=== PATIENT | female | born 1975 | race African-American/Black ===

== ENCOUNTER 2017-10-17 15:32 | Inpatient (IN) | payer SELFPAY ==
[2017-10-17] MEDS ORDERED: ACETAMINOPHEN 325 MG TABLET PO ONE (15:41)
[2017-10-17] MEDS ORDERED: NORMAL SALINE 1000 ML 1,000 ML IV PRN (16:11)
--- NOTE | 2017-10-17 16:12 | ER Document Report ---
ED Medical Screen (RME) - General Chief Complaint: Fever Stated Complaint: FEVER/HEADACHES Time Seen by Provider: 10/17/17 16:11 Notes: 42 years old female presents today with nearly 2-3 day history of sore throat neck pain general malaise and fever. Denies any headache denies any focal weaknesses. Denies any earache. Denies any chest pain shortness of breath or cough. Denies any nausea vomiting. Denies any dysuria frequency urgency I have greeted and performed a rapid initial assessment of this patient. A comprehensive ED assessment and evaluation of the patient, analysis of test results and completion of the medical decision making process will be conducted by additional ED providers. PHYSICAL EXAMINATION: GENERAL: Well-appearing, well-nourished and in no acute distress. HEAD: Atraumatic, normocephalic. EYES: Pupils equal round extraocular movements intact, conjunctiva are normal. ENT: Nares patent NECK: Normal range of motion LUNGS: No respiratory distress Musculoskeletal: Normal range of motion NEUROLOGICAL: Normal speech, normal gait. PSYCH: Normal mood, normal affect. SKIN: Warm, Dry, normal turgor, no rashes or lesions noted. TRAVEL OUTSIDE OF THE [place] IN LAST 30 DAYS: No - Related Data Allergies/Adverse Reactions: No Known Allergies Allergy (Unverified 10/17/17 15:34)
[2017-10-17] MEDS ORDERED: KETOROLAC TROMETHAMINE INJ/PF 30 MG/1 ML SDV IV ONE (16:59)
--- NOTE | 2017-10-17 17:04 | ER Document Report ---
ED General <SHABANA OROURKE - Last Filed: 10/17/17 18:45> - General Mode of Arrival: Ambulatory Information source: Patient TRAVEL OUTSIDE OF THE [place] IN LAST 30 DAYS: No <DAHLIA SHELTON - Last Filed: 10/17/17 22:26> - General Chief Complaint: Fever Stated Complaint: FEVER/HEADACHES Time Seen by Provider: 10/17/17 16:11 Notes: Patient is a 42 year old female with anemia presents to the emergency department complaining of multiple symptoms including sore throat, headaches, fevers and chills onset 3 days ago. Patient states she woke up 3 days ago and had chills. She states she took her temperature and found it to be 101.9. Patient states her symptoms progressively worsened over the last 3 days and found her temperature to be 103.9. Patient states she has been around sick contacts. Patient denies any cough or earaches. (DAHLIA SHELTON) - Related Data Allergies/Adverse Reactions: No Known Allergies Allergy (Unverified 10/17/17 15:34) Past Medical History - General Information source: Patient - Social History Smoking Status: Current Every Day Smoker Cigarette use (# per day): Yes - 1/2 a pack a day Chew tobacco use (# tins/day): No Smoking Education Provided: No Frequency of alcohol use: Occasional Drug Abuse: None Occupation: [employer] Family History: Reviewed & Not Pertinent Patient has suicidal ideation: No Patient has homicidal ideation: No Past Surgical History: Reports: Hx Section - x3 <DAHLIA SHELTON - Last Filed: 10/17/17 22:26> Review of Systems - Review of Systems Constitutional: See HPI, Chills, Fever EENT: See HPI Cardiovascular: No symptoms reported Respiratory: No symptoms reported Gastrointestinal: No symptoms reported Genitourinary: No symptoms reported Female Genitourinary: See HPI, Heavy/abnormal periods - reported after inital check Musculoskeletal: No symptoms reported Skin: No symptoms reported Hematologic/Lymphatic: No symptoms reported Neurological/Psychological: No symptoms reported -: Yes All other systems reviewed and negative <DAHLIA SHELTON - Last Filed: 10/17/17 22:26> Physical Exam <SHABANA OROURKE - Last Filed: 10/17/17 18:45> <DAHLIA SHELTON - Last Filed: 10/17/17 22:26> - Vital signs Vitals: Resp Pulse Ox 16 100 10/17/17 17:21 10/17/17 17:21 - Notes Notes: GENERAL: Alert, interacts well. No acute distress. HEAD: Normocephalic, atraumatic. EYES: Pupils equal, round, and reactive to light. Extraocular movements intact. Pale conjunctiva. ENT: Oral mucosa moist, tongue midline. Posterior orophraynx is erythematous with a minimal amount of swelling. NECK: Full range of motion. Supple. Trachea midline. Anterior cervical glands tender to palpation. LUNGS: Clear to auscultation bilaterally, no wheezes, rales, or rhonchi. No respiratory distress. HEART: Regular rate and rhythm. No murmurs, gallops, or rubs. ABDOMEN: Soft, non-tender. Non-distended. Bowel sounds present in all 4 quadrants. EXTREMITIES: Moves all 4 extremities spontaneously. NEUROLOGICAL: Alert and oriented x3. Normal speech. PSYCH: Normal affect, normal mood. SKIN: Warm, dry, normal turgor. No rashes or lesions noted. (DAHLIA SHELTON) Course - Laboratory Result Diagrams: 10/17/17 16:48 10/17/17 16:48 - Consults Dr. Velasquez Time consulted: 17:30 Consulted provider: will come to ER <SHABANA OROURKE - Last Filed: 10/17/17 18:45> - Laboratory Result Diagrams: 10/17/17 16:48 10/17/17 16:48 <DAHLIA SHELTON - Last Filed: 10/17/17 22:26> - Vital Signs Vital signs: Temp Pulse Resp BP Pulse Ox 98.8 F 94 15 112/57 L 100 10/17/17 21:06 10/17/17 21:06 10/17/17 21:08 10/17/17 21:08 10/17/17 21:08 - Laboratory Laboratory results interpreted by me: 10/17/17 10/17/17 10/17/17 16:48 16:48 16:48 WBC 10.6 H RBC 2.08 L Hgb 4.2 L* Hct 14.0 L* MCV 67 L MCH 20.2 L MCHC 30.1 L RDW 34.3 H Lymphocytes % 12.6 L Sodium 135.2 L Iron < 10.1 L TIBC 470 H Crossmatch 10/17/17 17:40 WBC RBC Hgb Hct MCV MCH MCHC RDW Lymphocytes % Sodium Iron TIBC Crossmatch See Detail Critical Care Note - Critical Care Note Total time excluding time spent on procedures (mins): 30 <SHABANA OROURKE - Last Filed: 10/17/17 18:45> Discharge - Discharge Admitting Provider: Hospitalist Unit Admitted: Telemetry <SHABANA OROURKE - Last Filed: 10/17/17 18:45> <DAHLIA SHELTON - Last Filed: 10/17/17 22:26> - Discharge Clinical Impression: Pharyngitis Qualifiers: Pharyngitis/tonsillitis etiology: unspecified etiology Qualified Code(s): J02.9 - Acute pharyngitis, unspecified Fever Qualifiers: Fever type: unspecified Qualified Code(s): R50.9 - Fever, unspecified Anemia Qualifiers: Anemia type: iron deficiency Iron deficiency anemia type: chronic blood loss Qualified Code(s): D50.0 - Iron deficiency anemia secondary to blood loss ( chronic) Menorrhagia Qualifiers: Menorrahagia type: with regular cycle Qualified Code(s): N92.0 - Excessive and frequent menstruation with regular cycle Condition: Stable Disposition: ADMITTED INPATIENT Scribe Attestation: 10/17/17 17:21 I personally performed the services described in the documentation, reviewed and edited the documentation which was dictated to the scribe in my presence, and it accurately records my words and actions. (SHABANA OROURKE) Scribe Documentation - Scribe Written by [email or web address]:: Fernando Lopes, 10/17/2017 17:09 acting as scribe for :: Kristopher <DAHLIA SHELTON - Last Filed: 10/17/17 22:26>
[2017-10-17 17:14] LABS: ABSOLUTE LYMPHOCYTES (AUTO) 1.3 10^3/uL (0.5-4.7); ABSOLUTE MONOCYTES (AUTO) 1.2 10^3/uL (0.1-1.4); ABSOLUTE NEUT (AUTO) 8.1 10^3/uL (1.7-8.2); BASOPHILS % (AUTO) 0.3 % (0-2); LYMPHOCYTES % (AUTO) 12.6 % (13-45); MEAN CORPUSCULAR HEMOGLOBIN 20.2 pg (27.0-33.4); MEAN CORPUSCULAR HGB CONC 30.1 g/dL (32.0-36.0); MEAN CORPUSCULAR VOLUME 67 fl (80-97); MONOCYTES % (AUTO) 10.9 % (3-13); PLATELET COUNT 314 10^3/uL (150-450); RED BLOOD COUNT 2.08 10^6/uL (3.72-5.28); RED CELL DISTRIBUTION WIDTH 34.3 % (11.5-14.0); SEGMENTED NEUTROPHILS % (AUTO) 76.2 % (42-78); TOTAL CELLS COUNTED % (AUTO) 100 %; WHITE BLOOD COUNT 10.6 10^3/uL (4.0-10.5)
[2017-10-17 17:21] LABS: HEMOGLOBIN 4.2 g/dL (12.0-15.5)
[2017-10-17 17:29] LABS: ALANINE AMINOTRANSFERASE 28 U/L (9-52); ALBUMIN 3.7 g/dL (3.5-5.0); ALKALINE PHOSPHATASE 44 U/L (38-126); ANION GAP 10 (5-19); ASPARTATE AMINO TRANSFERASE 23 U/L (14-36); BILIRUBIN,DIRECT 0.2 mg/dL (0.0-0.4); BILIRUBIN,TOTAL 0.2 mg/dL (0.2-1.3); BLOOD UREA NITROGEN 9 mg/dL (7-20); CALCIUM 8.4 mg/dL (8.4-10.2); CARBON DIOXIDE 23 mmol/L (22-30); CHLORIDE 102 mmol/L (98-107); GLUCOSE 84 mg/dL (75-110); POTASSIUM 4.1 mmol/L (3.6-5.0); SODIUM 135.2 mmol/L (137-145); TOTAL PROTEIN 6.4 g/dL (6.3-8.2)
[2017-10-17] MEDS ORDERED: NORMAL SALINE 250 ML IV PRN (17:33)
[2017-10-17 17:39] LABS: ANISOCYTOSIS 3+; HYPOCHROMASIA 3+; OVALOCYTES SLIGHT; PLATELET COMMENT ADEQUATE; POIKILOCYTOSIS 1+; POLYCHROMASIA SLIGHT; SCHISTOCYTES SLIGHT; STOMATOCYTES SLIGHT
[2017-10-17 18:15] LABS: ABSOLUTE RETICS # 0.045 10^6/uL (0.028-0.122); RETICULOCYTE COUNT (AUTO) 2.15 % (0.66-2.85)
--- NOTE | 2017-10-17 18:26 | PDOC H&P ---
History of Present Illness Admission Date/PCP: 10/17/2017 Patient complains of: sore throat , fatigue and craving for ice History of Present Illness: MIRELA FABIAN is a 42 year old female with no significant past medical history Who presented to the ED complaining of a mild sore throat and fatigue Patient stated that she had lost 20 pounds in the past month following a "vinegar diet " She has been describing very prolonged menses 5-7 days Patient denied abdominal pain or tarry stools. Routine blood testing done in the ED showed severe anemia with a hemoglobin of 4 and a hematocrit of 16 Patient was subsequently admitted under hospitalist service for further evaluation and care Past Medical History Past Medical History: Patient at this unknown medical history She does not have a primary care physician Hematology: Reports: Anemia - Patient was donating plasma in 2013 and was told she was anemic Past Surgical History Past Surgical History: 3 C-sections Past Surgical History: Reports: Section - x3 Social History Information Source: Patient Smoking Status: Current Every Day Smoker Frequency of Alcohol Use: None Hx Recreational Drug Use: No Hx Prescription Drug Abuse: No - Advance Directive Resuscitation Status: Full Code Surrogate healthcare decision maker:: Her son Wesley Prakash Family History Family History: DM, Hypertension Parental Family History Reviewed: Yes Children Family History Reviewed: Yes Sibling(s) Family History Reviewed.: Yes Medication/Allergy Allergies/Adverse Reactions: No Known Allergies Allergy (Unverified 10/17/17 15:34) Review of Systems Constitutional: PRESENT: as per HPI, fatigue, weight loss Cardiovascular: PRESENT: dyspnea on exertion. ABSENT: chest pain, edema, palpitations Respiratory: PRESENT: dyspnea Gastrointestinal: ABSENT: abdominal pain, coffee ground emesis, dysphagia, heartburn, hematemesis, hematochezia, vomiting Genitourinary: ABSENT: dysuria, hematuria Musculoskeletal: ABSENT: joint swelling Neurological: ABSENT: abnormal gait, abnormal speech, confusion, dizziness, focal weakness, syncope Endocrine: ABSENT: cold intolerance, heat intolerance, polydipsia, polyuria Hematologic/Lymphatic: ABSENT: easy bleeding, easy bruising Physical Exam Vital Signs: Intake & Output 10/16/17 10/17/17 10/18/17 00:59 00:59 00:59 Weight 68 kg General appearance: PRESENT: no acute distress, well-developed, well-nourished Head exam: PRESENT: atraumatic, normocephalic Eye exam: PRESENT: conjunctiva pale, EOMI, PERRLA Neck exam: ABSENT: carotid bruit, JVD, lymphadenopathy, thyromegaly Respiratory exam: PRESENT: clear to auscultation hannah. ABSENT: rales, rhonchi, wheezes Cardiovascular exam: PRESENT: RRR. ABSENT: diastolic murmur, rubs, systolic murmur Vascular exam: PRESENT: normal capillary refill Extremities exam: PRESENT: full ROM. ABSENT: calf tenderness, clubbing, pedal edema Neurological exam: PRESENT: alert, awake, oriented to person, oriented to place , oriented to time, oriented to situation, CN II-XII grossly intact. ABSENT: motor sensory deficit Skin exam: PRESENT: dry, intact, warm. ABSENT: cyanosis, rash Results Laboratory Results: 10/17/17 16:48 10/17/17 16:48 10/17/17 10/17/17 10/17/17 16:00 16:00 16:48 WBC Cancelled 10.6 H RBC Cancelled 2.08 L Hgb Cancelled 4.2 L* Hct Cancelled 14.0 L* MCV Cancelled 67 L MCH Cancelled 20.2 L MCHC Cancelled 30.1 L RDW Cancelled 34.3 H Plt Count Cancelled 314 Seg Neutrophils % Cancelled 76.2 Lymphocytes % Cancelled 12.6 L Monocytes % Cancelled 10.9 Eosinophils % Cancelled 0.0 Basophils % Cancelled 0.3 Absolute Neutrophils Cancelled 8.1 Absolute Lymphocytes Cancelled 1.3 Absolute Monocytes Cancelled 1.2 Absolute Eosinophils Cancelled 0.0 Absolute Basophils Cancelled 0.0 Sodium Cancelled Potassium Cancelled Chloride Cancelled Carbon Dioxide Cancelled Anion Gap Cancelled BUN Cancelled Creatinine Cancelled Est GFR ( Amer) Cancelled Est GFR (Non-Af Amer) Cancelled Glucose Cancelled Calcium Cancelled Total Bilirubin Cancelled AST Cancelled ALT Cancelled Alkaline Phosphatase Cancelled Total Protein Cancelled Albumin Cancelled Serum HCG, Qual 10/17/17 10/17/17 16:48 16:48 WBC RBC Hgb Hct MCV MCH MCHC RDW Plt Count Seg Neutrophils % Lymphocytes % Monocytes % Eosinophils % Basophils % Absolute Neutrophils Absolute Lymphocytes Absolute Monocytes Absolute Eosinophils Absolute Basophils Sodium 135.2 L Potassium 4.1 Chloride 102 Carbon Dioxide 23 Anion Gap 10 BUN 9 Creatinine 0.61 Est GFR ( Amer) > 60 Est GFR (Non-Af Amer) > 60 Glucose 84 Calcium 8.4 Total Bilirubin 0.2 AST 23 ALT 28 Alkaline Phosphatase 44 Total Protein 6.4 Albumin 3.7 Serum HCG, Qual NEGATIVE Assessment & Plan - Diagnosis (1) Anemia Is this a current diagnosis for this admission?: Yes Plan: Acute on chronic likely iron deficiency anemia Patient gives a history of very prolonged menses Iron vitamin B12 folate are pending Patient will be transfused 2 units of packed red cells Repeat CBC in a.m. Remain transfuse further tomorrow to achieve a hematocrit of 26 (2) Menorrhagia Qualifiers: Menorrahagia type: with regular cycle Qualified Code(s): N92.0 - Excessive and frequent menstruation with regular cycle Is this a current diagnosis for this admission?: Yes Plan: We will schedule the patient tomorrow morning for pelvic ultrasound to exclude a fibroid uterus - Time Time Spent with patient: Patient will be admitted to medicine was telemetry as an inpatient Time Spent: 50 to 70 Minutes - Inpatient Certification Based on my medical assessment, after consideration of the patient's comorbidities, presenting symptoms, or acuity I expect that the services needed warrant INPATIENT care.: Yes I certify that my determination is in accordance with my understanding of Medicare's requirements for reasonable and necessary INPATIENT services [42 CFR 412.3e].: Yes Medical Necessity: Need Close Monitoring Due to Risk of Patient Decompensation, Need For Continuous Telemetry Monitoring
[2017-10-17 19:22] LABS: IRON(TIBC) < 10.1 ug/dL (37-170)
[2017-10-18] MEDS: ACETAMINOPHEN 325 MG TABLET PO PRN ×4 (02:43→23:43)
[2017-10-18] MEDS: KETOROLAC TROMETHAMINE INJ/PF 30 MG/1 ML SDV IV PRN ×3 (04:40→22:54)
[2017-10-18] MEDS ORDERED: LEVOFLOXACIN 750 MG/D5W RTU 750 MG/150 ML RTUPB IV ONE (05:00)
[2017-10-18 07:21] LABS: ABSOLUTE BASOPHILS # (AUTO) 0.1 10^3/uL (0.0-0.2); ABSOLUTE LYMPHOCYTES (AUTO) 1.6 10^3/uL (0.5-4.7); ABSOLUTE MONOCYTES (AUTO) 1.1 10^3/uL (0.1-1.4); ABSOLUTE NEUT (AUTO) 7.5 10^3/uL (1.7-8.2); BASOPHILS % (AUTO) 0.6 % (0-2); HEMATOCRIT 18.9 % (36.0-47.0); LYMPHOCYTES % (AUTO) 15.8 % (13-45); MEAN CORPUSCULAR HEMOGLOBIN 22.3 pg (27.0-33.4); MEAN CORPUSCULAR HGB CONC 31.4 g/dL (32.0-36.0); MONOCYTES % (AUTO) 10.3 % (3-13); PLATELET COUNT 240 10^3/uL (150-450); RED BLOOD COUNT 2.67 10^6/uL (3.72-5.28); RED CELL DISTRIBUTION WIDTH 29.5 % (11.5-14.0); SEGMENTED NEUTROPHILS % (AUTO) 73.3 % (42-78); TOTAL CELLS COUNTED % (AUTO) 100 %; WHITE BLOOD COUNT 10.2 10^3/uL (4.0-10.5)
[2017-10-18 07:23] LABS: CHOLESTEROL 117.15 mg/dL (0-200); TRIGLYCERIDES 62 mg/dL (<150)
[2017-10-18 07:35] LABS: DIRECT LDL 35 mg/dL (<100)
[2017-10-18 07:52] LABS: MEAN CORPUSCULAR VOLUME 71 fl (80-97)
[2017-10-18 08:00] LABS: ANISOCYTOSIS 3+; HYPOCHROMASIA 2+; OVALOCYTES 2+; PLATELET COMMENT ADEQUATE; POIKILOCYTOSIS 2+
[2017-10-18 08:06] LABS: FREE T4 (FREE THYROXINE) 0.74 ng/dL (0.78-2.19)
[2017-10-18 08:20] LABS: THYROID STIMULATING HORMONE 3.53 uIU/mL (0.47-4.68)
[2017-10-18 08:39] LABS: HEMOGLOBIN 5.9 g/dL (12.0-15.5)
[2017-10-18] MEDS ORDERED: NORMAL SALINE 250 ML IV PRN ×2 (08:50)
--- NOTE | 2017-10-18 09:14 | PDOC PROGRESS REPORT ---
Subjective Progress Note for:: 10/18/17 Subjective:: Patient had a fever 102 yesterday Levaquin IV was initiated She still complaining of sore throat No cough no dysuria Hemoglobin is 5.9 this morning Reason For Visit: ACUTE/CHRONIC ANEMIA Physical Exam Vital Signs: Temp Pulse Resp BP Pulse Ox 99.8 F 92 18 103/53 L 98 10/18/17 06:35 10/18/17 07:00 10/18/17 06:35 10/18/17 06:35 10/18/17 06:35 Intake & Output 10/17/17 10/18/17 10/19/17 00:59 00:59 00:59 Intake Total 300 672 Balance 300 672 Weight 68 kg General appearance: PRESENT: no acute distress, cooperative Head exam: PRESENT: atraumatic, normocephalic Eye exam: PRESENT: conjunctiva pale Neck exam: ABSENT: carotid bruit, JVD, lymphadenopathy, thyromegaly Respiratory exam: PRESENT: clear to auscultation hannah. ABSENT: rales, rhonchi, wheezes Cardiovascular exam: PRESENT: RRR. ABSENT: diastolic murmur, rubs, systolic murmur Pulses: PRESENT: normal dorsalis pedis pul GI/Abdominal exam: PRESENT: normal bowel sounds, soft. ABSENT: distended, guarding, mass, organolmegaly, rebound, tenderness Neurological exam: PRESENT: alert, awake, oriented to person, oriented to place , oriented to time, oriented to situation, CN II-XII grossly intact. ABSENT: motor sensory deficit Results Laboratory Results: 10/18/17 07:00 10/18/17 10/18/17 10/18/17 07:00 07:00 07:00 WBC 10.2 RBC 2.67 L Hgb 5.9 L Hct 18.9 L MCV 71 L D MCH 22.3 L MCHC 31.4 L RDW 29.5 H Plt Count 240 Seg Neutrophils % 73.3 Lymphocytes % 15.8 Monocytes % 10.3 Eosinophils % 0.0 Basophils % 0.6 Absolute Neutrophils 7.5 Absolute Lymphocytes 1.6 Absolute Monocytes 1.1 Absolute Eosinophils 0.0 Absolute Basophils 0.1 Triglycerides 62 Cholesterol 117.15 LDL Cholesterol Direct 35 VLDL Cholesterol 12.0 HDL Cholesterol 58 TSH 3.53 Free T4 0.74 L Assessment & Plan - Diagnosis (1) Anemia Qualifiers: Anemia type: iron deficiency Iron deficiency anemia type: chronic blood loss Qualified Code(s): D50.0 - Iron deficiency anemia secondary to blood loss (chronic) Is this a current diagnosis for this admission?: Yes Plan: Transfuse 2 units of packed red cells Hematology consult Patient may need intravenous iron as an outpatient (2) Menorrhagia Qualifiers: Menorrahagia type: with regular cycle Qualified Code(s): N92.0 - Excessive and frequent menstruation with regular cycle Is this a current diagnosis for this admission?: Yes Plan: Pelvic ultrasound is pending (3) Pharyngitis Qualifiers: Pharyngitis/tonsillitis etiology: unspecified etiology Qualified Code(s): J02.9 - Acute pharyngitis, unspecified Is this a current diagnosis for this admission?: Yes Plan: Switch antibiotic coverage to clinda po Strep was negative - Time Time Spent with patient: 25-34 minutes
--- NOTE | 2017-10-18 10:24 | RADIOLOGY REPORT (SQ) ---
EXAM DESCRIPTION: CHEST SINGLE VIEW COMPLETED DATE/TIME: 10/18/2017 9:58 am REASON FOR STUDY: fever COMPARISON: 10/21/2008 EXAM PARAMETERS: NUMBER OF VIEWS: One view. TECHNIQUE: Single frontal radiographic view of the chest acquired. RADIATION DOSE: NA LIMITATIONS: None. FINDINGS: LUNGS AND PLEURA: No opacities, masses or pneumothorax. No pleural effusion. MEDIASTINUM AND HILAR STRUCTURES: No masses. Contour normal. HEART AND VASCULAR STRUCTURES: Heart normal in size. Normal vasculature. BONES: No acute findings. HARDWARE: None in the chest. OTHER: No other significant finding. IMPRESSION: NO ACUTE RADIOGRAPHIC FINDING IN THE CHEST. TECHNICAL DOCUMENTATION: JOB ID: [id number] [employer]- All Rights Reserved Reading location - IP/workstation name: [email or web address]
--- NOTE | 2017-10-18 12:29 | PDOC CONSULTATION ---
Consultation Consult Date: 10/18/17 Consult reason:: Hematology/Oncology Consult was requested for patient with anemia. History of Present Illness Admission Date/PCP: 10/17/17 18:45 History of Present Illness: MIRELA FABIAN is a 42 year old female who states that she has had anemia for many years. She often craves ice but has not needed to see a physician for the past 5 years, as she has been healthy. She has been on a "vinegar diet" taking about 1/4 cup vinegar 3 times a day and has lost about 20 lbs in the last 2 months. She has been very pleased with this. She eats mainly vegetables with little meat. Early Thurs. morning, she developed sudden shaking chills and felt "feverish." She took her temp and it was elevated. However, she took Tylenol and went on to work. She then develoed headache, pain in her throat and fever returns up to 103. She presented to the ED and was found to have HGB of 4.2. She is in the process of receiving blood transfusions and is being evaluated for possible strep throat. Past Medical History Hematology: Reports: Anemia - Patient was donating plasma in 2013 and was told she was anemic Past Surgical History Past Surgical History: Reports: Section - x3 Social History Information Source: Patient Occupation: [employer] Lives with: Family Smoking Status: Current Some Day Smoker Number of Years Smokin Frequency of Alcohol Use: Occasional Hx Recreational Drug Use: No Drugs: None Hx Prescription Drug Abuse: No - Advance Directive Resuscitation Status: Full Code Family History Parental Family History Reviewed: Yes - MGM with Colon cancer Also with DM, HTN in parents Children Family History Reviewed: Yes Sibling(s) Family History Reviewed.: No Medication/Allergy Home Medications: No Home Medications 10/17/17 Allergies/Adverse Reactions: No Known Allergies Allergy (Unverified 10/17/17 15:34) Review of Systems Constitutional: PRESENT: fever(s), headache(s), night sweats Eyes: ABSENT: visual disturbances Ears: ABSENT: hearing changes Nose, Mouth, and Throat: PRESENT: sore throat Cardiovascular: ABSENT: chest pain Respiratory: ABSENT: cough Gastrointestinal: ABSENT: heartburn Genitourinary: ABSENT: dysuria, hematuria Musculoskeletal: ABSENT: joint swelling Integumentary: ABSENT: rash Neurological: ABSENT: numbness, weakness Endocrine: PRESENT: menstrual abnormalities - Heavy periods. Hematologic/Lymphatic: ABSENT: lymphadenopathy Physical Exam Vital Signs: Temp Pulse Resp BP Pulse Ox 99.6 F 92 18 103/53 L 98 10/18/17 09:21 10/18/17 07:00 10/18/17 06:35 10/18/17 06:35 10/18/17 06:35 Intake & Output 10/17/17 10/18/17 10/19/17 06:59 06:59 06:59 Intake Total 972 0 Balance 972 0 Weight 68 kg General appearance: PRESENT: no acute distress Exam: Overweight, 42 year old female. Head exam: PRESENT: normocephalic Eye exam: PRESENT: EOMI, PERRLA Mouth exam: PRESENT: moist, tongue midline Neck exam: ABSENT: lymphadenopathy, tenderness Respiratory exam: PRESENT: clear to auscultation hannah, unlabored Cardiovascular exam: PRESENT: RRR GI/Abdominal exam: PRESENT: soft. ABSENT: tenderness Extremities exam: ABSENT: pedal edema Musculoskeletal exam: PRESENT: normal inspection Neurological exam: PRESENT: alert, awake, oriented to person, oriented to place , oriented to time, oriented to situation. ABSENT: motor sensory deficit Psychiatric exam: PRESENT: appropriate affect Skin exam: PRESENT: normal color Results Laboratory Results: 10/18/17 07:00 10/18/17 10/18/17 10/18/17 07:00 07:00 07:00 WBC 10.2 RBC 2.67 L Hgb 5.9 L Hct 18.9 L MCV 71 L D MCH 22.3 L MCHC 31.4 L RDW 29.5 H Plt Count 240 Seg Neutrophils % 73.3 Lymphocytes % 15.8 Monocytes % 10.3 Eosinophils % 0.0 Basophils % 0.6 Absolute Neutrophils 7.5 Absolute Lymphocytes 1.6 Absolute Monocytes 1.1 Absolute Eosinophils 0.0 Absolute Basophils 0.1 Triglycerides 62 Cholesterol 117.15 LDL Cholesterol Direct 35 VLDL Cholesterol 12.0 HDL Cholesterol 58 TSH 3.53 Free T4 0.74 L Impressions: Chest X-Ray 10/18/17 08:53 IMPRESSION: NO ACUTE RADIOGRAPHIC FINDING IN THE CHEST. Assessment & Plan - Diagnosis (1) Anemia Qualifiers: Anemia type: iron deficiency Iron deficiency anemia type: chronic blood loss Qualified Code(s): D50.0 - Iron deficiency anemia secondary to blood loss (chronic) Is this a current diagnosis for this admission?: Yes Plan: We discussed the fact that she is not getting enough iron in her diet. I believe that she may do well with oral supplements in the future. I will start these now. I agree with blood transfusion. If she does not respond to the oral iron, then I will arrange further testing and treatment. (2) Fever Qualifiers: Fever type: unspecified Qualified Code(s): R50.9 - Fever, unspecified Is this a current diagnosis for this admission?: Yes Plan: I agree with work-up for throat. I will defer to primary team. - Plan Summary Plan Summary: We discussed the fact that the vinegar diet may not be the healthiest approach. I would like to see her start MVI in addition to the iron supplements. If her stomach does not tolerate, then consider another form. I will be happy to continue to follow her as outpatient and will follow her levels at least over the next year.
[2017-10-18 13:28] LABS: PATH REVIEW PATHOLOGIST REVIEWED
[2017-10-18 15:51] LABS: APPEARANCE,URINE SLIGHTLY-CLOUDY; BILIRUBIN,URINE NEGATIVE (NEGATIVE); COLOR,URINE YELLOW; GLUCOSE, URINE NEGATIVE (NEGATIVE); KETONES,URINE NEGATIVE (NEGATIVE); LEUKOCYTE ESTERASE,URINE SMALL (NEGATIVE); NITRITE,URINE NEGATIVE (NEGATIVE); PROTEIN,URINE 30 mg/dL (NEGATIVE); URINE SPECIFIC GRAVITY 1.023
[2017-10-18] MEDS ORDERED: CEFTRIAXONE 1 GM/D5W RTU 1 GM/50 ML RTUPB IV SCH (16:00)
[2017-10-18] MEDS ORDERED: IBUPROFEN 600 MG TABLET PO ONE (16:45)
[2017-10-18] MEDS: FERROUS SULFATE 325 MG TABLET PO SCH (17:42)
[2017-10-18] MEDS: CEFTRIAXONE SODIUM 1,000 MG in DEXTROSE 5%-WATER 50 ML IV SCH (17:42)
[2017-10-19] MEDS: ACETAMINOPHEN 325 MG TABLET PO PRN ×2 (05:50→15:48)
[2017-10-19 07:06] LABS: ABSOLUTE BASOPHILS # (AUTO) 0.1 10^3/uL (0.0-0.2); TOTAL CELLS COUNTED % (AUTO) 100 %
[2017-10-19 07:12] LABS: ABSOLUTE LYMPHOCYTES (AUTO) 1.3 10^3/uL (0.5-4.7); ABSOLUTE MONOCYTES (AUTO) 1.5 10^3/uL (0.1-1.4); ABSOLUTE NEUT (AUTO) 8.7 10^3/uL (1.7-8.2); BASOPHILS % (AUTO) 0.5 % (0-2); EOSINOPHILS % (AUTO) 0.2 % (0-6); LYMPHOCYTES % (AUTO) 11.1 % (13-45); MEAN CORPUSCULAR HEMOGLOBIN 23.7 pg (27.0-33.4); MEAN CORPUSCULAR VOLUME 74 fl (80-97); MONOCYTES % (AUTO) 12.8 % (3-13); PLATELET COUNT 188 10^3/uL (150-450); RED BLOOD COUNT 2.98 10^6/uL (3.72-5.28); SEGMENTED NEUTROPHILS % (AUTO) 75.4 % (42-78); WHITE BLOOD COUNT 11.5 10^3/uL (4.0-10.5)
[2017-10-19 07:40] LABS: ANISOCYTOSIS 4+; HYPOCHROMASIA 2+; OVALOCYTES 1+; POIKILOCYTOSIS 1+; TEAR DROP CELLS SLIGHT
[2017-10-19 07:42] LABS: PLATELET COMMENT ADEQUATE
[2017-10-19 07:43] LABS: HEMOGLOBIN 7.1 g/dL (12.0-15.5)
[2017-10-19] MEDS: FERROUS SULFATE 325 MG TABLET PO SCH ×2 (08:19→17:51)
[2017-10-19] MEDS: KETOROLAC TROMETHAMINE INJ/PF 30 MG/1 ML SDV IV PRN ×2 (08:20→15:48)
[2017-10-19] MEDS ORDERED: LEVOFLOXACIN 750 MG/D5W RTU 750 MG/150 ML RTUPB IV SCH (10:00)
[2017-10-19] MEDS: MULTIVITAMIN TABLET PO SCH (10:55)
--- NOTE | 2017-10-19 11:04 | PDOC PROGRESS REPORT ---
Subjective Progress Note for:: 10/19/17 Subjective:: Patient states that she is feeling much better. Still with some hot flashes. Throat is improved. Reason For Visit: ACUTE/CHRONIC ANEMIA Physical Exam Vital Signs: Temp Pulse Resp BP Pulse Ox 99.5 F 56 L 14 97/50 L 98 10/19/17 08:30 10/19/17 08:30 10/19/17 08:30 10/19/17 08:30 10/19/17 08:30 Intake & Output 10/18/17 10/19/17 10/20/17 06:59 06:59 06:59 Intake Total 972 1805.25 Output Total 500 Balance 972 1305.25 Weight 68 kg 68.2 kg Results Laboratory Results: 10/19/17 05:44 10/18/17 10/19/17 14:47 05:44 WBC 11.5 H RBC 2.98 L Hgb 7.1 L Hct 22.0 L MCV 74 L MCH 23.7 L MCHC 32.0 RDW 29.0 H Plt Count 188 Seg Neutrophils % 75.4 Lymphocytes % 11.1 L Monocytes % 12.8 Eosinophils % 0.2 Basophils % 0.5 Absolute Neutrophils 8.7 H Absolute Lymphocytes 1.3 Absolute Monocytes 1.5 H Absolute Eosinophils 0.0 Absolute Basophils 0.1 Urine Color YELLOW Urine Appearance SLIGHTLY-CLOUDY Urine pH 6.0 Ur Specific Nettie 1.023 Urine Protein 30 H Urine Glucose (UA) NEGATIVE Urine Ketones NEGATIVE Urine Blood NEGATIVE Urine Nitrite NEGATIVE Ur Leukocyte Esterase SMALL H Urine WBC (Auto) 29 Urine RBC (Auto) 3 Impressions: Chest X-Ray 10/18/17 08:53 IMPRESSION: NO ACUTE RADIOGRAPHIC FINDING IN THE CHEST. Assessment & Plan - Diagnosis (1) Anemia Qualifiers: Anemia type: iron deficiency Iron deficiency anemia type: chronic blood loss Qualified Code(s): D50.0 - Iron deficiency anemia secondary to blood loss (chronic) Is this a current diagnosis for this admission?: Yes Plan: Improved after transfusion. She is tolerating PO iron without difficulty. LDH was not elevated. (2) Fever Qualifiers: Fever type: unspecified Qualified Code(s): R50.9 - Fever, unspecified Is this a current diagnosis for this admission?: Yes - Plan Summary Plan Summary: OK to discharge from anemia standpoint. She should continue oral iron supplements at least twice a day. I will see her in the office in a few weeks to repeat CBC and ferritin. Please call with any other concerns.
--- NOTE | 2017-10-19 16:08 | PDOC PROGRESS REPORT ---
Subjective Progress Note for:: 10/19/17 Subjective:: Patient is doing well but she is still febrile Temp is intermittently 101 102 through the day sorethroat is persistent but mild Patient is also complaining of low back pain Reason For Visit: ACUTE/CHRONIC ANEMIA Physical Exam Vital Signs: Temp Pulse Resp BP Pulse Ox 98.9 F 76 16 94/55 L 97 10/19/17 12:59 10/19/17 14:00 10/19/17 12:59 10/19/17 12:59 10/19/17 12:59 Intake & Output 10/18/17 10/19/17 10/20/17 00:59 00:59 00:59 Intake Total 300 2359.25 118 Output Total 500 Balance 300 1859.25 118 Weight 68 kg 68.2 kg General appearance: PRESENT: no acute distress, disheveled, well-developed, well -nourished Head exam: PRESENT: atraumatic, normocephalic Eye exam: PRESENT: conjunctiva pink, EOMI, PERRLA. ABSENT: scleral icterus Throat exam: ABSENT: post pharyngeal erythema, tonsillar exudate Neck exam: ABSENT: carotid bruit, JVD, lymphadenopathy, thyromegaly Respiratory exam: PRESENT: clear to auscultation hannah. ABSENT: rales, rhonchi, wheezes Cardiovascular exam: PRESENT: RRR. ABSENT: diastolic murmur, rubs, systolic murmur GI/Abdominal exam: PRESENT: normal bowel sounds, soft. ABSENT: distended, guarding, mass, organolmegaly, rebound, tenderness Neurological exam: PRESENT: alert, awake, oriented to person, oriented to place , oriented to time, oriented to situation, CN II-XII grossly intact. ABSENT: motor sensory deficit Psychiatric exam: PRESENT: appropriate affect, normal mood Results Laboratory Results: 10/19/17 05:44 10/19/17 05:44 WBC 11.5 H RBC 2.98 L Hgb 7.1 L Hct 22.0 L MCV 74 L MCH 23.7 L MCHC 32.0 RDW 29.0 H Plt Count 188 Seg Neutrophils % 75.4 Lymphocytes % 11.1 L Monocytes % 12.8 Eosinophils % 0.2 Basophils % 0.5 Absolute Neutrophils 8.7 H Absolute Lymphocytes 1.3 Absolute Monocytes 1.5 H Absolute Eosinophils 0.0 Absolute Basophils 0.1 Impressions: Chest X-Ray 10/18/17 08:53 IMPRESSION: NO ACUTE RADIOGRAPHIC FINDING IN THE CHEST. Assessment & Plan - Diagnosis (1) Anemia Qualifiers: Anemia type: iron deficiency Iron deficiency anemia type: chronic blood loss Qualified Code(s): D50.0 - Iron deficiency anemia secondary to blood loss (chronic) Is this a current diagnosis for this admission?: Yes Plan: patient will be discharged on iron supplements iron deficiency secondary to heavy menses (2) Menorrhagia Qualifiers: Menorrahagia type: with regular cycle Qualified Code(s): N92.0 - Excessive and frequent menstruation with regular cycle Is this a current diagnosis for this admission?: Yes Plan: ? fibroid uterus pelvic US report pending (3) Pharyngitis Qualifiers: Pharyngitis/tonsillitis etiology: unspecified etiology Qualified Code(s): J02.9 - Acute pharyngitis, unspecified Is this a current diagnosis for this admission?: Yes Plan: neg for strep fever still persistent ordered CT neck (4) Febrile illness Is this a current diagnosis for this admission?: Yes Plan: etiology unclear continue Ceftriaxone - Time Time Spent with patient: 25-34 minutes
[2017-10-19] MEDS: CEFTRIAXONE SODIUM 1,000 MG in DEXTROSE 5%-WATER 50 ML IV SCH (17:50)
[2017-10-20] MEDS: KETOROLAC TROMETHAMINE INJ/PF 30 MG/1 ML SDV IV PRN (01:34)
[2017-10-20] MEDS: FERROUS SULFATE 325 MG TABLET PO SCH (09:59)
[2017-10-20] MEDS: MULTIVITAMIN TABLET PO SCH (09:59)
[2017-10-20 11:03] VITALS: BP 117/76
--- NOTE | 2017-10-20 14:07 | PDOC DISCHARGE SUMMARY ---
General - Admit/Disc Date/PCP Admission Date/Primary Care Provider: 10/17/17 18:45 [facility] Discharge Date: 10/20/17 - Discharge Diagnosis (1) Anemia Is this a current diagnosis for this admission?: Yes Summary: Upon admission patient was diagnosed of acute on chronic anemia Hemoglobin was 4 with a hematocrit of 14 10/17/17 16:00 Hgb Cancelled Hct Cancelled MCV Cancelled 10/17/17 10/17/17 10/19/17 16:48 16:48 05:44 RBC 2.08 L Hgb 4.2 L* 7.1 L Hct 14.0 L* 22.0 L MCV 67 L Plt Count 314 Iron < 10.1 L TIBC 470 H Ferritin 14.80 Patient gave her history of prolonged menstrual bleeding Patient was transfused 2 units of packed red cells The cause of the anemia is severe iron deficiency Iron supplements where initiated At discharge patient's hematocrit is 22 and she is asymptomatic B12 and folate were normal 10/17/17 16:48 Vitamin B12 788.0 Folate 16.00 (2) Menorrhagia Is this a current diagnosis for this admission?: Yes Summary: Pelvic ultrasound was performed during the hospitalization to exclude fibroid uterus Results test still pending at time of discharge (3) Pharyngitis Is this a current diagnosis for this admission?: Yes Summary: Patient did have a sore throat febrile illness she had a fever of up to 102 She was negative for strep She was treated during her hospitalization with ceftriaxone IV Blood cultures were negative She was discharged on Keflex 500 mg 3 times daily for 7 days (4) Febrile illness Is this a current diagnosis for this admission?: Yes Summary: Likely to be secondary to pharyngitis Improved during the hospital stay - Additional Information Resuscitation Status: Full Code Discharge Diet: As Tolerated Discharge Activity: Activity As Tolerated Prescriptions: Cephalexin Monohydrate [Keflex 500 mg Capsule] 500 mg PO TID #21 capsule Ferrous Sulfate [Feosol 325 mg Tablet] 325 mg PO BIDPCBS 30 Days #60 tablet Multivitamin [Tab-A-Siobhan (Multiple Vitamin) Tablet] 1 tab PO DAILY 30 Days #30 tablet Home Medications: Cephalexin Monohydrate [Keflex 500 mg Capsule] 500 mg PO TID #21 capsule Ferrous Sulfate [Feosol 325 mg Tablet] 325 mg PO BIDPCBS 30 Days #60 tablet 08/04 Multivitamin [Tab-A-Siobhan (Multiple Vitamin) Tablet] 1 tab PO DAILY 30 Days #30 tablet 10/20/17 History of Present Illness Patient complains of: Sore throat and fatigue History of Present Illness: MIRELA FABIAN is a 42 year old female with no significant past medical history Who presented to the ED complaining of a mild sore throat and fatigue Patient stated that she had lost 20 pounds in the past month following a "vinegar diet " She has been describing very prolonged menses 5-7 days Patient denied abdominal pain or tarry stools. Routine blood testing done in the ED showed severe anemia with a hemoglobin of 4 and a hematocrit of 16 Patient was subsequently admitted under hospitalist service for further evaluation and care Hospital Course Hospital Course: See above Physical Exam Vital Signs: Temp Pulse Resp BP Pulse Ox 97.7 F 67 16 117/76 100 10/20/17 10:48 10/20/17 10:48 10/20/17 10:48 10/20/17 10:48 10/20/17 10:48 Intake & Output 10/19/17 10/20/17 10/21/17 00:59 00:59 00:59 Intake Total 2359.25 1410 340 Output Total 500 Balance 1859.25 1410 340 Weight 68 kg 68.2 kg 76.7 kg General appearance: PRESENT: no acute distress, disheveled, well-developed, well -nourished Head exam: PRESENT: atraumatic, normocephalic Eye exam: PRESENT: conjunctiva pink, EOMI, PERRLA. ABSENT: scleral icterus Throat exam: ABSENT: post pharyngeal erythema, tonsillar exudate Neck exam: ABSENT: carotid bruit, JVD, lymphadenopathy, thyromegaly Respiratory exam: PRESENT: clear to auscultation hannah. ABSENT: rales, rhonchi, wheezes Cardiovascular exam: PRESENT: RRR. ABSENT: diastolic murmur, rubs, systolic murmur GI/Abdominal exam: PRESENT: normal bowel sounds, soft. ABSENT: distended, guarding, mass, organolmegaly, rebound, tenderness Neurological exam: PRESENT: alert, awake, oriented to person, oriented to place , oriented to time, oriented to situation, CN II-XII grossly intact. ABSENT: motor sensory deficit Psychiatric exam: PRESENT: appropriate affect, normal mood Results Laboratory Results: 10/19/17 05:44 10/19/17 05:44 C-Reactive Protein 170.6 H 10/18/17 14:47 Clean Catch Midstream Urine Culture - Final Mixed Urogenital Phyilcia Impressions: Chest X-Ray 10/18/17 08:53 IMPRESSION: NO ACUTE RADIOGRAPHIC FINDING IN THE CHEST. Qualifiers - * PATIENT BEING DISCHARGED WITH ANY OF THE FOLLOWING DIAGNOSIS: No Plan Discharge Plan: Patient was referred to the [facility] She was also advised to follow-up with [employer] Time Spent: Greater than 30 Minutes
--- NOTE | 2017-10-20 15:46 | RADIOLOGY REPORT (SQ) ---
EXAM DESCRIPTION: U/S NON-OB PELVIS LTD W/O DOP COMPLETED DATE/TIME: 10/18/2017 6:49 pm REASON FOR STUDY: menorrhagia COMPARISON: None. TECHNIQUE: Dynamic and static grayscale images acquired of the pelvis via transabdominal approach an d recorded on PACS. Additional selected color Doppler and spectral images recorded. LIMITATIONS: Limited by transabdominal technique only. FINDINGS: UTERUS: Poorly visualized. ENDOMETRIAL STRIPE: Not visualized. CERVIX: No nabothian cysts. RIGHT OVARY AND DOPPLER: Normal size. Normal arterial vascular flow without evidence for torsion. 7 .5 x 4.8 x 7.4 cm adnexal mass. LEFT OVARY AND DOPPLER: Normal size. No worrisome masses. Normal arterial vascular flow without evide nce for torsion. FREE FLUID: None noted. OTHER: No other significant finding. MEASUREMENTS: UTERUS: 6.2 x 4.0 cm. ENDOMETRIAL STRIPE: Not visualized. RIGHT OVARY: 4 x 3 x 3 cm. LEFT OVARY: 4.1 x 3.2 x 4.4 cm. IMPRESSION: LIMITED TRANSABDOMINAL PELVIC ULTRASOUND WITH 7.5 CM RIGHT ADNEXAL MASS COULD BE ARISING FROM THE RIGHT OVARY OR REPRESENTS EXOPHYTIC UTERINE FIBROID. PELVIC MRI OR CT MAY BE USEFUL FOR FU RTHER CHARACTERIZATION. TECHNICAL DOCUMENTATION: JOB ID: [id number] [employer]- All Rights Reserved Reading location - IP/workstation name: [email or web address]
== END 2017-10-20 11:56 | disposition home or self-care (01) | DRG 812 ==
LOC: ER 15:32 → EH 18:45 → 4N 10-18 02:33
PROVIDERS: ADMIT Emergency Medicine; ATTEND Emergency Medicine
PROC: 30230N1 Transfusion of Nonautologous Red Blood Cells into Peripheral Vein, Open Approach (ICD-10-PCS; principal; 2017-10-17)
PROC: 30230N1 Transfusion of Nonautologous Red Blood Cells into Peripheral Vein, Open Approach (ICD-10-PCS; 2017-10-18)
DX: D62 Acute posthemorrhagic anemia (principal); N92.0 Excessive and frequent menstruation with regular cycle; J02.9 Acute pharyngitis, unspecified; F17.210 Nicotine dependence, cigarettes, uncomplicated
CPT/HCPCS: 36415; 36430; 71045; 76857; 80053; 80061; 81001; 82272; 82607; 82728; 82746; 83036; 83540; 83550; 83615; 84439; 84443; 84703; 85025; 85045; 85652; 86140; 86850; 86900; 86901; 86920; 87040; 87070; 87086; 87880; 99285; J0696; J1885; J1956; P9016